=== PATIENT | female | born 1975 | race African-American/Black ===

== ENCOUNTER 2017-09-29 10:26 | Observation (INO) | payer OTHER ==
[~2017-09-29] VITALS: Ht 172.7 cm; Wt 76.0 kg
[~2017-09-29 10:26] MED LIST: OMEP20TA OR; VERA40TA PO
[2017-09-29 10:41] VITALS: BP 164/78; PULSE 109; RESP 20; TEMP 98.7; O2SAT 100
[2017-09-29 11:07] VITALS: BP 147/73; PULSE 85; RESP 18; O2SAT 100
[2017-09-29] MEDS ORDERED: OMEP20TA93 PO (11:07)
[2017-09-29] MEDS ORDERED: LISI-515 PO (11:07)
[2017-09-29] MEDS ORDERED: TOPI25TA7 PO (11:08)
[2017-09-29 11:11] VITALS: BP 147/73; PULSE 85; RESP 18; O2SAT 100
[2017-09-29] MEDS ORDERED: SODIUM CHLORIDE 0.9% FLUSH 10 ML FLUSH IVF PRN (11:15)
--- NOTE | 2017-09-29 11:15 | PD ---
HPI Chief Complaint: Chest Pain Time Seen by Provider: 10:59 Travel History International Travel<30 days: No Contact w/Intl Traveler<30days: No Traveled to known affect area: No History of Present Illness HPI The patient was seen and examined in the presence of the nurse. This patient complains of chest pain. Location is left upper chest. Feels like a pressure sensation. Symptoms come and go. They are not exertional. She is currently pain-free. Duration 1 day. Severity is moderate. No history of cardiac disease. She does have problems with cholesterol and blood pressure. No recent cardiac testing. No alleviating factors. No exacerbating factors. PFSH Past Medical History Hx Anticoagulant Therapy: No Cardiovascular Problems: No High Cholesterol: Yes Chemotherapy: No Cerebrovascular Accident: No Diabetes: No Diminished Hearing: No Hypertension: Yes Respiratory: No Tetanus Vaccination: > 5 Years Influenza Vaccination: Yes ?: Unknown LMP: 09/29/17 : 6 Para: 4 Miscarriage: 1 Past Surgical History Cholecystectomy: Yes Gynecologic Surgery: Yes (CERVICAL CERCLAGE IN ) Social History Alcohol Use: No Tobacco Use: No Substance Use: No Allergies-Medications (Allergen,Severity, Reaction): Coded Allergies: cyclobenzaprine (Verified Allergy, Severe, Anaphylaxis, 09/29/17) penicillin G (Unverified Allergy, Severe, CHEST PAINS, 09/29/17) tramadol (Verified Allergy, Severe, Anaphylaxis, 09/29/17) Reported Meds & Prescriptions Reported Meds & Active Scripts Active Reported Topiramate 25 Mg Tab 25 Mg PO HS Omeprazole 20 Mg Tab 20 Mg PO DAILY Lisinopril 20 Mg Tab 20 Mg PO DAILY Review of Systems General / Constitutional: No: Fever Eyes: No: Visual changes HENT: No: Headaches Cardiovascular: Positive: Chest Pain or Discomfort Respiratory: No: Shortness of Breath Gastrointestinal: No: Abdominal Pain Genitourinary: No: Dysuria Musculoskeletal: No: Pain Skin: No Rash Neurologic: No: Weakness Psychiatric: No: Depression Endocrine: No: Polydipsia Hematologic/Lymphatic: No: Easy Bruising Physical Exam Narrative GENERAL: Well-nourished, well-developed patient in no apparent distress. SKIN: Focused skin assessment reveals no rash and nodules. Skin is Warm and dry. HEAD: Atraumatic. Normocephalic. EYES: Pupils equal and round. No scleral icterus. No injection or drainage. ENT: No nasal bleeding or discharge. Mucous membranes pink and moist. NECK: Trachea midline. No JVD. CARDIOVASCULAR: Regular rate and rhythm. No murmur appreciated. RESPIRATORY: No accessory muscle use. Clear to auscultation. Breath sounds equal bilaterally. GASTROINTESTINAL: Abdomen soft, non-tender, nondistended. Hepatic and splenic margins not palpable. MUSCULOSKELETAL: No obvious deformities. No clubbing. No cyanosis. No edema. No chest wall tenderness NEUROLOGICAL: Awake and alert. No obvious cranial nerve deficits. Motor grossly within normal limits. Normal speech. PSYCHIATRIC: Appropriate mood and affect; insight and judgment normal. Data Data Last Documented VS Vital Signs Date Time Temp Pulse Resp B/P (MAP) Pulse Ox O2 Delivery O2 Flow Rate FiO2 09/29/17 13:02 90 18 140/85 (103) 100 Room Air 09/29/17 10:41 98.7 Orders Orders Electrocardiogram (09/29/17 11:07) Basic Metabolic Panel (Bmp) (09/29/17 11:07) Ckmb (Isoenzyme) Profile (09/29/17 11:07) Complete Blood Count With Diff (09/29/17 11:07) Magnesium (Mg) (09/29/17 11:07) Prothrombin Time / Inr (Pt) (09/29/17 11:07) Act Partial Throm Time (Ptt) (09/29/17 11:07) Troponin I (09/29/17 11:07) Chest, Single Ap (09/29/17 11:07) Ecg Monitoring (09/29/17 11:07) Iv Access Insert/Monitor (09/29/17 11:07) Oximetry (09/29/17 11:07) Sodium Chloride 0.9% Flush (Ns Flush) (09/29/17 11:15) Ed Urine Pregnancytest Poc (09/29/17 11:15) Labs Laboratory Tests Test 09/29/17 11:10 White Blood Count 5.6 TH/MM3 Red Blood Count 4.54 MIL/MM3 Hemoglobin 10.7 GM/DL Hematocrit 34.1 % Mean Corpuscular Volume 75.0 FL Mean Corpuscular Hemoglobin 23.6 PG Mean Corpuscular Hemoglobin Concent 31.5 % Red Cell Distribution Width 16.6 % Platelet Count 282 TH/MM3 Mean Platelet Volume 8.6 FL Neutrophils (%) (Auto) 63.6 % Lymphocytes (%) (Auto) 28.0 % Monocytes (%) (Auto) 5.3 % Eosinophils (%) (Auto) 2.6 % Basophils (%) (Auto) 0.5 % Neutrophils # (Auto) 3.6 TH/MM3 Lymphocytes # (Auto) 1.6 TH/MM3 Monocytes # (Auto) 0.3 TH/MM3 Eosinophils # (Auto) 0.1 TH/MM3 Basophils # (Auto) 0.0 TH/MM3 CBC Comment DIFF FINAL Differential Comment Prothrombin Time 10.4 SEC Prothromb Time International Ratio 1.0 RATIO Activated Partial Thromboplast Time 23.0 SEC Blood Urea Nitrogen 8 MG/DL Creatinine 0.74 MG/DL Random Glucose 126 MG/DL Calcium Level 8.8 MG/DL Magnesium Level 2.1 MG/DL Sodium Level 141 MEQ/L Potassium Level 3.3 MEQ/L Chloride Level 108 MEQ/L Carbon Dioxide Level 24.9 MEQ/L Anion Gap 8 MEQ/L Estimat Glomerular Filtration Rate 104 ML/MIN Total Creatine Kinase 57 U/L Troponin I LESS THAN 0.02 NG/ML MDM Medical Decision Making Medical Screen Exam Complete: Yes Emergency Medical Condition: Yes Medical Record Reviewed: Yes Differential Diagnosis Differential diagnosis includes MN, angina, pericarditis, pleurisy, GERD, anxiety. Narrative Course I have reviewed the patient's electronic medical record. Patient has been here multiple times for related issues She took an aspirin prior to arrival. I reviewed her EKG which is normal Extended cardiac monitoring reveals sinus rhythm without ectopy I reviewed her chest x-ray which is normal Labs sent CBC and metabolic profile and cardiac enzymes are all normal Patient has multiple risk factors for cardiac disease. She will be a 23 hour observation in the chest pain center in order to rule out cardiac cause of her symptoms Diagnosis Primary Impression: Chest pain Qualified Codes: R07.9 - Chest pain, unspecified Admitting Information Admitting Physician Requests: Observation Rayshawn Castillo MD September 29, 2017 11:15
[2017-09-29 11:22] LABS: AUTOMATED NEUTROPHIL # 3.6 TH/MM3 (1.8-7.7); BASOPHIL % 0.5 % (0.0-2.0); EOSINOPHIL # 0.1 TH/MM3 (0-0.4); EOSINOPHIL % 2.6 % (0.0-4.0); HEMATOCRIT 34.1 % (35.0-46.0); HEMOGLOBIN 10.7 GM/DL (11.6-15.3); LYMPHOCYTE # 1.6 TH/MM3 (1.0-4.8); MEAN CORPUSCULAR HEMOGLOBIN 23.6 PG (27.0-34.0); MEAN CORPUSCULAR HGB CONC 31.5 % (32.0-36.0); MEAN PLATELET VOLUME 8.6 FL (7.0-11.0); MONO % 5.3 % (0.0-8.0); MONOCYTE # 0.3 TH/MM3 (0-0.9); NEUT % 63.6 % (16.0-70.0); PLATELET COUNT 282 TH/MM3 (150-450); RED BLOOD COUNT 4.54 MIL/MM3 (4.00-5.30); RED CELL DISTRIBUTION WIDTH 16.6 % (11.6-17.2); WHITE BLOOD COUNT 5.6 TH/MM3 (4.0-11.0)
--- NOTE | 2017-09-29 11:26 | RADRPT ---
EXAM DATE/TIME: 09/29/2017 11:11 [facility] COMPARISON: No previous studies available for comparison. INDICATIONS : Chest pain. MEDICAL HISTORY : Hypertension. SURGICAL HISTORY : Cholecystectomy. ENCOUNTER: Initial ACUITY: 1 day PAIN SCORE: 10/10 LOCATION: Bilateral chest FINDINGS: A single view of the chest demonstrates the lungs to be symmetrically aerated without evidence of mas s, infiltrate or effusion. The cardiomediastinal contours are unremarkable. Osseous structures are intact. CONCLUSION: No acute disease. Ashwin Ontiveros MD on September 29, 2017 at 11:23 Board Certified Radiologist. This report was verified electronically.
[2017-09-29 11:31] LABS: PROTHROMBIN TIME - PATIENT 10.4 SEC (9.8-11.6)
[2017-09-29 11:40] LABS: BICARBONATE 24.9 MEQ/L (21.0-32.0); BLOOD UREA NITROGEN 8 MG/DL (7-18); CALCIUM 8.8 MG/DL (8.5-10.1); CHLORIDE 108 MEQ/L (98-107); CREATININE 0.74 MG/DL (0.50-1.00); GLOMERULAR FILTRATION RATE 104 ML/MIN (>89); GLUCOSE,RANDOM 126 MG/DL (74-106); MAGNESIUM 2.1 MG/DL (1.5-2.5); SODIUM (NA) 141 MEQ/L (136-145)
[2017-09-29 11:43] LABS: TROPONIN I LESS THAN 0.02 NG/ML (0.02-0.05)
--- NOTE | 2017-09-29 11:50 | EKG ---
Date Performed: 09/29/2017 Time Performed: 10:52:39 PTAGE: 41 years EKG: Sinus rhythm NORMAL ECG PREVIOUS TRACING : 05/15/1995 05.14 Compared to previous tracing, nonspecific ST changes have e ssentially resolved. DOCTOR: Oniel Lagunas Interpretating Date/Time 09/29/2017 11:49:30
[2017-09-29 13:02] VITALS: BP 140/85; PULSE 90; RESP 18; O2SAT 100
[2017-09-29] MEDS ORDERED: ONDANSETRON ODT 4 MG TAB PO PRN (14:30)
[2017-09-29] MEDS ORDERED: ACETAMINOPHEN 500 MG CPLT PO PRN (14:30)
--- NOTE | 2017-09-29 14:30 | HHI.HP ---
[facility] Primary Care Physician Ryder Shafer DO Chief Complaint Chest pain History of Present Illness This is a 41-year-old female that presents to ED via private vehicle with history of hypertension and GERD that presents to ED with complaint of waking up at 3:00 this morning with cold sweats and chest discomfort. Points to left upper chest and states it was a pressure. Mild to moderate in nature. It was intermittent throughout the day lasting a few hours at a time. Nothing in particular seemed to bring on. She might of been a little short of breath initially. Patient states she got nervous. States she has history of anxiety. She also felt a little nauseous. States that she has had this several times in the past. States she has been admitted 4 times over the last few years. States she has had a 2D echo, EKGs, and enzymes checked several times. States she had outpatient stress test with 2 years ago and that was normal. Has not followed him since. States she really never knows if it is heartburn or something else which is why she goes to the hospital. States that her heartburn has worsened over the last few weeks. States she takes Prilosec daily. Denies recent illness. Denies fevers or chills. Denies . Review of Systems General: Patient denies fevers, chills recent, and recent travel HEENT: Patient denies headache, sore throat, difficulty swallowing. Cardiovascular: Has the chest discomfort as mentioned above. Denies sensation of heart beating rapidly or irregularly. No syncope. She woke up in a cold sweat this morning. Respiratory: Initially short of breath. Denies inspirational chest discomfort. Denies coughing wheezing or hemoptysis. GI: She was briefly nauseated. States she has been burping a lot. Patient denies vomiting, diarrhea, abdominal pain, bloody stools. Musculoskeletal: Patient denies joint pain or edema. Denies calf pain or edema. Neurovascular: Patient denies numbness, tingling, weakness in extremities. Denies headache. Endocrine: Denies polyuria and polydipsia. Hematologic: Denies easy bruising. Skin: Denies rash or itching. Past Family Social History Allergies: Coded Allergies: cyclobenzaprine (Verified Allergy, Severe, Anaphylaxis, 09/29/17) penicillin G (Unverified Allergy, Severe, CHEST PAINS, 09/29/17) tramadol (Verified Allergy, Severe, Anaphylaxis, 09/29/17) Past Medical History Hypertension, GERD, and hyperlipidemia. Denies diabetes and CAD. Past Surgical History Cholecystectomy. Reported Medications Reported Meds & Active Scripts Active Reported Topiramate 25 Mg Tab 25 Mg PO HS Omeprazole 20 Mg Tab 20 Mg PO DAILY Lisinopril 20 Mg Tab 20 Mg PO DAILY Active Ordered Medications Current Medications Medications (Trade) Dose Ordered Sig/Jayy Route Start Time Stop Time Status Last Admin (NS Flush) 2 ml UNSCH PRN IVF 09/29/17 11:15 Family History States she does not know her family medical history. States she was adopted. Social History Lifetime non-smoker. Denies alcohol or illicit drugs. Physical Exam Vital Signs Vital Signs Date Time Temp Pulse Resp B/P (MAP) Pulse Ox O2 Delivery O2 Flow Rate FiO2 09/29/17 13:02 90 18 140/85 (103) 100 Room Air 09/29/17 11:11 85 18 147/73 (97) 100 Room Air 09/29/17 11:07 85 18 147/73 (97) 100 Room Air 09/29/17 10:57 18 Room Air 09/29/17 10:41 98.7 109 20 164/78 (106) 100 Physical Exam GENERAL: This is a well-nourished, well-developed patient, in no apparent distress. Patient speaks in clear complete sentences. Patient is pleasant. HEENT: Head is atraumatic and normocephalic. Neck is supple without lymphadenopathy and trachea is midline. No JVD or carotid bruits. CARDIOVASCULAR: Regular rate and rhythm without murmurs, gallops, or rubs. RESPIRATORY: Clear to auscultation. Breath sounds equal bilaterally. No wheezes , rales, or rhonchi. Chest wall is tender. No use of accessory muscles. GASTROINTESTINAL: Abdomen is nontender, nondistended. Abdomen soft. No obvious pulsatile mass or bruit. No CVA tenderness. Strong femoral pulses bilaterally. Normal bowel sounds in all quadrants. MUSCULOSKELETAL: Patient is moving upper and lower extremities freely. No calf tenderness or edema, no Homans sign. Strong pulses in upper and lower extremities. NEUROLOGICAL: Patient is alert and oriented. Cranial nerves 2-12 are grossly intact. No focal deficits and speech is clear. SKIN: No rash and turgor is normal. Laboratory Laboratory Tests Test 09/29/17 11:10 White Blood Count 5.6 Red Blood Count 4.54 Hemoglobin 10.7 Hematocrit 34.1 Mean Corpuscular Volume 75.0 Mean Corpuscular Hemoglobin 23.6 Mean Corpuscular Hemoglobin Concent 31.5 Red Cell Distribution Width 16.6 Platelet Count 282 Mean Platelet Volume 8.6 Neutrophils (%) (Auto) 63.6 Lymphocytes (%) (Auto) 28.0 Monocytes (%) (Auto) 5.3 Eosinophils (%) (Auto) 2.6 Basophils (%) (Auto) 0.5 Neutrophils # (Auto) 3.6 Lymphocytes # (Auto) 1.6 Monocytes # (Auto) 0.3 Eosinophils # (Auto) 0.1 Basophils # (Auto) 0.0 CBC Comment DIFF FINAL Differential Comment Prothrombin Time 10.4 Prothromb Time International Ratio 1.0 Activated Partial Thromboplast Time 23.0 Blood Urea Nitrogen 8 Creatinine 0.74 Random Glucose 126 Calcium Level 8.8 Magnesium Level 2.1 Sodium Level 141 Potassium Level 3.3 Chloride Level 108 Carbon Dioxide Level 24.9 Anion Gap 8 Estimat Glomerular Filtration Rate 104 Total Creatine Kinase 57 Troponin I LESS THAN 0.02 Result Diagram: 09/29/17 1110 09/29/17 1110 Imaging Last 48 hours Impressions Chest X-Ray 09/29/17 1107 Signed Impressions: Service Date/Time: Friday, September 29, 2017 11:11 - CONCLUSION: No acute disease. Ashwin Ontiveros MD Course Initial EKG is sinus rhythm without significant ST segment depressions or elevations. Caprini VTE Risk Assessment Caprini VTE Risk Assessment: No/Low Risk (score <= 1) Caprini Risk Assessment Model Point Value = 1 Point Value = 2 Point Value = 3 Point Value = 5 Age 41-60 Minor surgery BMI > 25 kg/m2 Swollen legs Varicose veins or History of unexplained or recurrent spontaneous Oral contraceptives or hormone replacement Sepsis (< 1 month) Serious lung disease, including pneumonia (< 1 month) Abnormal pulmonary function Acute myocardial infarction Congestive heart failure (< 1 month) History of inflammatory bowel disease Medical patient at bed rest Age 61-74 Arthroscopic surgery Major open surgery (> 45 min) Laparoscopic surgery (> 45 min) Malignancy Confined to bed (> 72 hours) Immobilizing plaster cast Central venous access Age >= 75 History of VTE Family history of VTE Factor V Leiden Prothrombin [id number] Lupus anticoagulant Anticardiolipin antibodies Elevated serum homocysteine Heparin-induced thrombocytopenia Other congenital or acquired thrombophilia Stroke (< 1 month) Elective arthroplasty Hip, pelvis, or leg fracture Acute spinal cord injury (< 1 month) Prophylaxis Regimen Total Risk Factor Score Risk Level Prophylaxis Regimen 0-1 Low Early ambulation 2 Moderate Order ONE of the following: *Sequential Compression Device (SCD) *Heparin 5000 units SQ BID 3-4 Higher Order ONE of the following medications: *Heparin 5000 units SQ TID *Enoxaparin/Lovenox 40 mg SQ daily (WT < 150 kg, CrCl > 30 mL/min) *Enoxaparin/Lovenox 30 mg SQ daily (WT < 150 kg, CrCl > 10-29 mL/min) *Enoxaparin/Lovenox 30 mg SQ BID (WT < 150 kg, CrCl > 30 mL/min) AND/OR *Sequential Compression Device (SCD) 5 or more Highest Order ONE of the following medications: *Heparin 5000 units SQ TID (Preferred with Epidurals) *Enoxaparin/Lovenox 40 mg SQ daily (WT < 150 kg, CrCl > 30 mL/min) *Enoxaparin/Lovenox 30 mg SQ daily (WT < 150 kg, CrCl > 10-29 mL/min) *Enoxaparin/Lovenox 30 mg SQ BID (WT < 150 kg, CrCl > 30 mL/min) AND *Sequential Compression Device (SCD) Assessment and Plan Assessment and Plan * Chest pain: Patient has had cardiac enzyme and EKG. She will be seen by Dr. Bridges of cardiology and the chest pain center. Likely to undergo a Néstor protocol ETT. Patient will be discharged home with stress test was nonischemic with instructions to follow-up with PCP. Return to ED for interval issues. * Hypertension: Resume medication however patient was educated on the importance of not being on lisinopril if she were to become . * Hyperlipidemia: Patient states that she was prescribed this at a prior admission at [facility] however her PCP told her not to take it until he got labs back. She should follow this with her PCP. * GERD: Continue medication. Patient is stable at this time. She is agreeable to this plan. Leonel Elizalde September 29, 2017 14:30
[2017-09-29 14:38] VITALS: BP 146/88; PULSE 78; RESP 20; O2SAT 100
[2017-09-29] MEDS ORDERED: POTASSIUM CHLORIDE 20 MEQ CONTROLLED RELEASE TAB PO ONE (14:45)
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
[2017-09-29 16:35] VITALS: BP 146/88
[2017-09-30] MEDS ORDERED: ASPIRIN 325 MG TAB PO SCH (09:00)
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
== END 2017-09-29 16:35 | disposition home or self-care (01) ==
LOC: NEPC 10:26 → NEDA 13:32
PROVIDERS: ADMIT Internal Medicine Cardiovascular Disease; ATTEND Internal Medicine Cardiovascular Disease
DX: R07.89 Other chest pain (principal); R11.0 Nausea; I10 Essential (primary) hypertension; E78.5 Hyperlipidemia, unspecified; K21.9 Gastro-esophageal reflux disease without esophagitis; F41.9 Anxiety disorder, unspecified; Z79.899 Other long term (current) drug therapy
CPT/HCPCS: 71045; 80048; 82550; 83735; 84484; 84703; 85025; 85610; 85730; 93005; 99285; G0378